=== PATIENT | male | born 1955 ===

== ENCOUNTER 2021-01-17 17:54 | Emergency (ER) | payer OTHER ==
[~2021-01-17] VITALS: Ht 185.4 cm; Wt 88.2 kg
[2021-01-17 18:00] VITALS: BP 136/72
[2021-01-17] MEDS ORDERED: PLEASE ENTER HEIGHT AND WEIGHT MC SCH (18:30)
[2021-01-17] MEDS ORDERED: SODIUM CHLORIDE FLUSH 10ML SYR IVF ONE (18:30)
[2021-01-17 18:33] LABS: BASOPHILS % (AUTO) 1 % (0-1); EOSINOPHILS % (AUTO) 1 % (1-7); LYMPHOCYTES % (AUTO) 12 % (22-44); MEAN CORPUSCULAR HEMOGLOBIN 31.8 pg (27.5-34.5); MEAN CORPUSCULAR HGB CONC 33.9 g/dL (33.2-36.2); MONOCYTES % (AUTO) 5 % (2-9); NEUTROPHILS % (AUTO) 81 % (42-75); PLATELET COUNT 132 x10^3/uL (130-400); RED BLOOD COUNT 3.65 x10^6/uL (4.38-5.82)
[2021-01-17 18:44] LABS: ALANINE AMINOTRANSFERASE 25 U/L (12-78); ALBUMIN 3.7 g/dL (3.4-5.0); ANION GAP 6 mmol/L (5-15); CALCIUM 9.2 mg/dL (8.5-10.1); CHLORIDE 110 mmol/L (98-107)
[2021-01-17 18:47] LABS: ALKALINE PHOSPHATASE 76 U/L (45-117); BILIRUBIN,TOTAL 0.7 mg/dL (0.2-1.0); CREATININE 4.88 mg/dL (0.7-1.3); TOTAL PROTEIN 7.5 g/dL (6.4-8.2)
[2021-01-17 18:52] LABS: MICROSCOPIC INDICATED
--- NOTE | 2021-01-17 20:12 | NUR ---
PT AMBULATED TO ROOM. MILD DISCOMFORT TO LEFT SIDE OF HIS BACK, POST FALL. PT DENIES HITTING HIS HEAD AND NO LOC. PT HAD LABS DONE AND CT DONE, AND ALL RESULTS BACK, AND MD TO RECHECK. PT WILL BE D/C'D.
--- NOTE | 2021-01-17 20:54 | NUR ---
F/U AND D/C INSTRUCTIONS GIVEN TO PT AND HE V/U. PT AMBULATED TO DISCHARGE DESK.
== END 2021-01-17 21:24 | disposition home or self-care (01) ==
LOC: ED 20:33
DX: S50.312A Abrasion of left elbow, initial encounter (principal); R31.0 Gross hematuria; N18.30 Chronic kidney disease, stage 3 unspecified; R10.9 Unspecified abdominal pain; W01.0XXA Fall on same level from slipping, tripping and stumbling without subsequent striking against object, initial encounter; Y93.89 Activity, other specified; Y92.410 Unspecified street and highway as the place of occurrence of the external cause; Y99.8 Other external cause status
CPT/HCPCS: 36415; 71045; 74176; 80053; 81001; 85025; 87086; 99285